=== PATIENT | female | born 1995 | race American Indian/Alaskan Native ===

== ENCOUNTER 2017-12-14 19:05 | Emergency (ER) | payer MEDICAID, OTHER ==
[2017-12-14 19:31] VITALS: BP 132/62
[2017-12-14 20:17] LABS: Hematocrit 34.8 % (30.3-42.9); Hemoglobin 12.4 gm/dl (10.1-14.3); Mean Corpuscular HGB Conc 36 % (30-34); Mean Corpuscular Hemoglobin 31 pg (28-32); Mean Corpuscular Volume 88 fl (79-97); Platelet Count 179 K/mm3 (140-440); Red Blood Count 3.97 M/mm3 (3.65-5.03)
[2017-12-14 20:29] LABS: BUN/Creatinine Ratio 15; Blood Urea Nitrogen 9 mg/dL (7-17); Hemolysis Index 50
--- NOTE | 2017-12-14 23:38 | Ultrasound Report ---
FINAL REPORT EXAM: US OB TRANSVAGINAL HISTORY: vaginal bleed with TECHNIQUE: Ultrasound obstetrical trans vaginal PRIORS: None. FINDINGS: The endometrium is markedly thickened with irregular appearance with largely echogenic areas along with some hypoechoic areas. There is an ovoid sac-like structure in the mid to lower uterus without definitive pole or yolk sac identified. Endometrium measures 2.67 centimeters. Right ovary is 3.2 x 1.9 x 1.9 centimeters there is a 1.9 centimeter right ovarian cyst Left ovary is 2.1 x 1.4 x 1.6 centimeters. No free fluid identified within the cul-de-sac. IMPRESSION: Findings are most suggestive of incomplete miscarriage
--- NOTE | 2017-12-14 23:45 | Ultrasound Report ---
FINAL REPORT EXAM: US OB < = 14 WEEKS FETUS HISTORY: vaginal bleed with TECHNIQUE: Ultrasound obstetrical transabdominal PRIORS: None. FINDINGS: The endometrium is markedly thickened with irregular appearance with largely echogenic areas along with some hypoechoic areas. There is an ovoid sac-like structure in the mid to lower uterus without definitive pole or yolk sac identified. Endometrium measures 2.67 centimeters. Right ovary is 3.2 x 1.9 x 1.9 centimeters there is a 1.9 centimeter right ovarian cyst Left ovary is 2.1 x 1.4 x 1.6 centimeters. No free fluid identified within the cul-de-sac. IMPRESSION: Findings are most suggestive of incomplete miscarriage
[2017-12-14] MEDS ORDERED: ZOFRAN ODT ONE (23:51)
[2017-12-14] MEDS ORDERED: NORCO 5/325 ONE (23:51)
[2017-12-14] MEDS ORDERED: ZOFRAN ODT PO ONE (23:53)
[2017-12-14] MEDS ORDERED: NORCO 5/325 PO ONE (23:54)
[2017-12-15] MEDS ORDERED: MORPHINE IM ONE (00:15)
[2017-12-15] MEDS ORDERED: ZOFRAN ONE (00:15)
[2017-12-15] MEDS ORDERED: ZOFRAN IM ONE (00:15)
[2017-12-15] MEDS ORDERED: MORPHINE ONE (00:15)
--- NOTE | 2017-12-15 01:11 | Emergency Department Report ---
ED HPI - General Chief complaint: Vaginal Bleeding Stated complaint: MISCARRIAGE/PAIN Source: patient Mode of arrival: Ambulatory Limitations: No Limitations - History of Present Illness MD Complaint: abdominal pain, vaginal bleeding Onset/Timin -: week(s) Radiation: none Severity: moderate Severity scale (0 -10): 4 Quality: cramping Consistency: intermittent Improves with: none Worsens with: movement Associated symptoms: vaginal bleeding, abdominal pain. denies: shortness of breath, syncope, weakness Vaginal bleeding: clots :: Yes - Related Data Previous Rx's Medication Instructions Recorded Last Taken Type Ondansetron [Zofran Odt] 4 mg PO TID PRN #15 tab.rapdis 12/15/17 Unknown Rx traMADol [Ultram] 50 mg PO Q6HR PRN #9 tablet 12/15/17 Unknown Rx Allergies Allergy/AdvReac Type Severity Reaction Status Date / Time Penicillins Allergy Unknown Verified 12/14/17 19:31 ED Review of Systems ROS: Stated complaint: MISCARRIAGE/PAIN Other details as noted in HPI Constitutional: denies: chills, fever Eyes: denies: eye pain, eye discharge, vision change ENT: denies: ear pain, throat pain Respiratory: denies: cough, shortness of breath, wheezing Cardiovascular: denies: chest pain, palpitations Endocrine: no symptoms reported Gastrointestinal: abdominal pain, nausea, vomiting Genitourinary: other (vaginal bleeding ) Musculoskeletal: back pain Skin: denies: rash, lesions Neurological: denies: headache, weakness, paresthesias Psychiatric: denies: anxiety, depression Hematological/Lymphatic: denies: easy bleeding, easy bruising ED Past Medical Hx - Past Medical History Previous Medical History?: No - Surgical History Past Surgical History?: No - Social History Smoking Status: Never Smoker Substance Use Type: None - Medications Home Medications: Home Medications Medication Instructions Recorded Confirmed Last Taken Type Ondansetron [Zofran Odt] 4 mg PO TID PRN #15 tab.rapdis 12/15/17 Unknown Rx traMADol [Ultram] 50 mg PO Q6HR PRN #9 tablet 12/15/17 Unknown Rx ED Physical Exam - General Limitations: No Limitations General appearance: alert, in no apparent distress - Head Head exam: Present: atraumatic, normocephalic - Eye Eye exam: Present: normal appearance - ENT ENT exam: Present: mucous membranes moist - Neck Neck exam: Present: normal inspection - Respiratory Respiratory exam: Present: normal lung sounds bilaterally. Absent: respiratory distress - Cardiovascular Cardiovascular Exam: Present: regular rate, normal rhythm. Absent: systolic murmur, diastolic murmur, rubs, gallop - GI/Abdominal GI/Abdominal exam: Present: soft, normal bowel sounds. Absent: distended, tenderness, guarding, rebound, rigid, organomegaly, mass, bruit, pulsatile mass , hernia - Expanded GI/Abdominal Exam Expanded GI/Abdominal exam: Absent: psoas sign, obturator sign, heel tap sign, Hamilton's sign - Rectal Rectal exam: Present: deferred - Extremities Exam Extremities exam: Present: normal inspection, full ROM, normal capillary refill. Absent: tenderness, pedal edema, joint swelling, calf tenderness - Back Exam Back exam: Present: normal inspection, full ROM. Absent: tenderness, CVA tenderness (R), CVA tenderness (L), muscle spasm, paraspinal tenderness, vertebral tenderness, rash noted - Neurological Exam Neurological exam: Present: alert, oriented X3, CN II-XII intact, normal gait, reflexes normal - Psychiatric Psychiatric exam: Present: normal affect, normal mood - Skin Skin exam: Present: warm, dry, intact, normal color. 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 Echeverria defers vaginal exam to the plan Ultram when necessary pain and Zofran when necessary nausea patient given strict instructions to return the ED should symptoms worsen H&H stable pt id bpos blood type at this time patient to DC to home in stable condition patient verbalizes understanding and agreement was signed will be DC'd home in stable condition at this time Critical care attestation.: If time is entered above; I have spent that time in minutes in the direct care of this critically ill patient, excluding procedure time. ED Disposition Clinical Impression: Miscarriage, Vaginal bleeding affecting early Disposition: DC-01 TO HOME OR SELFCARE Is pt being admited?: No Does the pt Need Aspirin: No Condition: Good Instructions: Spontaneous Miscarriage (ED) Prescriptions: Ondansetron [Zofran Odt] 4 mg PO TID PRN #15 tab.rapdis PRN Reason: nausea and vomiting traMADol [Ultram] 50 mg PO Q6HR PRN #9 tablet PRN Reason: Pain Referrals: JESSICA ECHEVERRIA MD [Referring] - 3-5 Days Forms: Work/School Release Form(ED) Time of Disposition: 01:18
== END 2017-12-15 01:30 | disposition home or self-care (01) ==
LOC: ED 19:05
DX: O03.9 Complete or unspecified spontaneous abortion without complication (principal); Z88.0 Allergy status to penicillin; Z3A.01 Less than 8 weeks gestation of pregnancy
CPT/HCPCS: 36415; 76801; 76817; 80048; 84702; 85027; 86900; 86901; 96372; 99284; J2270; J2405; Q0162

== ENCOUNTER 2018-06-06 12:32 | Emergency (ER) | payer BC, OTHER ==
[2018-06-06 12:42] VITALS: BP 125/82
[2018-06-06] MEDS ORDERED: REGLAN IV ONE (13:20)
[2018-06-06] MEDS ORDERED: PEPCID IV ONE (13:20)
[2018-06-06] MEDS ORDERED: ZOFRAN IV ONE (13:20)
--- NOTE | 2018-06-06 13:22 | Emergency Department Report ---
Vomiting/Diarrhea - HPI Duration: multiple weeks Severity: severe Nausea/Vomiting Severity: Severe Diarrhea Severity: None Pain Severity: None Other History: Patient has been diagnosed with hyperemesis gravidarum and is approximately 10 weeks . Patient is scheduled to have a Zofran pump installed however this is not happened yet. Patient states she is been unable to keep anything down and is starting to feel dizzy. She is coming in because her home medications are not working. <CRUZ NGO - Last Filed: 06/06/18 13:21> <GAURI ZENDEJAS - Last Filed: 06/06/18 16:22> - HPI Chief Complaint: Nausea/Vomiting/Diarrhea Stated Complaint: 10 WKS PREG/VOMITING Time Seen by Provider: 06/06/18 13:13 ED Review of Systems ROS: Stated complaint: 10 WKS PREG/VOMITING Other details as noted in HPI Comment: All other systems reviewed and negative <CRUZ NGO - Last Filed: 06/06/18 13:21> ROS: Stated complaint: 10 WKS PREG/VOMITING Other details as noted in HPI <GAURI ZENDEJAS - Last Filed: 06/06/18 16:22> ED Past Medical Hx - Past Medical History Previous Medical History?: No - Surgical History Past Surgical History?: No - Social History Smoking Status: Never Smoker Substance Use Type: None <CRUZ NGO - Last Filed: 06/06/18 13:21> <GAURI ZENDEJAS - Last Filed: 06/06/18 16:22> - Medications Home Medications: Home Medications Medication Instructions Recorded Confirmed Last Taken Type Ondansetron [Zofran Odt] 4 mg PO TID PRN #15 tab.rapdis 12/15/17 Unknown Rx traMADol [Ultram] 50 mg PO Q6HR PRN #9 tablet 12/15/17 Unknown Rx Metoclopramide [Reglan] 10 mg PO TID PRN #30 tab 06/06/18 Unknown Rx Vomiting Diarrhea Exam - Exam General: Vital signs noted. No distress. Alert and acting appropriately. HEENT: No Pharyngeal Erythema, No Pharyngeal Exudates, No Moist Mucous Membranes (dry), No Rhinorrhea, No Conjuctival Injection, No Frontal Tenderness, No Maxillary Tenderness Neck: No Adenopathy, No Rigidity Lungs: Yes Clear Lung Sounds, Yes Good Air Exchange, No Wheezes, No Stridor, No Cough, No Nasal Flaring, No Retractions, No Use of Accessory Muscles Heart exam: Regular: Yes, Murmur: No, Tachycardia: No Abdomen: Tenderness: No, Peritoneal Signs: No, Distention: No, Hyperactive Bowel sounds: No Skin exam: Rash: No, Edema: No, Normal turgor: Yes Neurologic: Alert and oriented, no deficits. Musculoskeletal: Unremarkable. <CRUZ NGO - Last Filed: 06/06/18 13:21> - Exam General: Vital signs noted. No distress. Alert and acting appropriately. Neurologic: Alert and oriented, no deficits. Musculoskeletal: Unremarkable. <GAURI ZENDEJAS - Last Filed: 06/06/18 16:22> ED Course Vital Signs 06/06/18 12:36 Temperature 99.1 F Pulse Rate 98 H Respiratory 18 Rate Blood Pressure 125/82 O2 Sat by Pulse 100 Oximetry <CRUZ NGO - Last Filed: 06/06/18 13:21> Vital Signs 06/06/18 06/06/18 12:36 13:47 Temperature 99.1 F Pulse Rate 98 H Respiratory 18 18 Rate Blood Pressure 125/82 O2 Sat by Pulse 100 99 Oximetry <GAURI ZENDEJAS - Last Filed: 06/06/18 16:22> ED Medical Decision Making - Lab Data Result diagrams: 06/06/18 13:48 06/06/18 13:48 - Medical Decision Making Patient was seen and examined by Chelly Silva. Labs obtained. Vital signs are stable prior to discharge. Patient received medical treatment in the ED which patient stated symptoms has resolved and subsided. A by mouth challenge has been obtained and patient tolerated well with no nausea vomiting. Patient was also instructed to Follow-up with a primary care doctor in 3-5 days or if symptoms worsen and continue return to emergency room as soon as possible. At time of discharge, the patient does not seem toxic or ill in appearance. No acute signs of distress noted. Patient agrees to discharge treatment plan of care. No further questions noted by the patient. <GAURI ZENDEJAS Last Filed: 06/06/18 16:22> Critical care attestation.: If time is entered above; I have spent that time in minutes in the direct care of this critically ill patient, excluding procedure time. <CRUZ NGO - Last Filed: 06/06/18 13:21> Critical care attestation.: If time is entered above; I have spent that time in minutes in the direct care of this critically ill patient, excluding procedure time. <GAURI ZENDEJAS - Last Filed: 06/06/18 16:22> ED Disposition <NGOCRUZ - Last Filed: 06/06/18 13:21> Is pt being admited?: No Does the pt Need Aspirin: No <GAURI ZENDEJAS - Last Filed: 06/06/18 16:22> Clinical Impression: Hyperemesis gravidarum, Hypokalemia Disposition: TO HOME OR SELFCARE Condition: Stable Instructions: Hyperemesis Gravidarum (ED) Additional Instructions: Follow-up with a OBGYN doctor in 3-5 days or if symptoms worsen and continue return to emergency room as soon as possible. Prescriptions: Metoclopramide [Reglan] 10 mg PO TID PRN #30 tab PRN Reason: Nausea Referrals: OSWALD MATHEWS MD [Primary Care Provider] - 3-5 Days PRIMARY CAREMD [Referring] - 3-5 Days LEONARD BANKS MD [Staff Physician] - 3-5 Days [facility] [Provider Group] - 3-5 Days Forms: Work/School Release Form(ED)
[2018-06-06 13:59] LABS: Basophils % (Auto) 0.4 % (0.0-1.8); Eosinophils # (Auto) 0.1 K/mm3 (0.0-0.4); Eosinophils % (Auto) 0.7 % (0.0-4.3); Hematocrit 40.6 % (30.3-42.9); Hemoglobin 14.1 gm/dl (10.1-14.3); Lymphocytes # (Auto) 1.1 K/mm3 (1.2-5.4); Lymphocytes % (Auto) 12.5 % (13.4-35.0); Mean Corpuscular HGB Conc 35 % (30-34); Mean Corpuscular Volume 84 fl (79-97); Monocytes # (Auto) 0.5 K/mm3 (0.0-0.8); Monocytes % (Auto) 5.5 % (0.0-7.3); Platelet Count 223 K/mm3 (140-440); Red Blood Count 4.84 M/mm3 (3.65-5.03); Red Cell Distribution Width 12.6 % (13.2-15.2)
[2018-06-06] MEDS ORDERED: D5NS 1,000 ML IV SCH (14:00)
[2018-06-06 14:35] LABS: BUN/Creatinine Ratio 12; Blood Urea Nitrogen 6 mg/dL (7-17); Hemolysis Index 0
[2018-06-06] MEDS ORDERED: K-DUR PO ONE (16:20)
== END 2018-06-06 16:47 | disposition home or self-care (01) ==
LOC: ED 12:32
DX: O21.1 Hyperemesis gravidarum with metabolic disturbance (principal); Z3A.10 10 weeks gestation of pregnancy; Z88.0 Allergy status to penicillin
CPT/HCPCS: 36415; 80048; 85025; 96361; 96374; 96375; 99283; J2405; J2765; J7042

== ENCOUNTER 2019-04-21 14:46 | Inpatient (IN) | payer BC, OTHER ==
[2019-04-21] MEDS ORDERED: ACETAMINOPHEN 325 MG TAB PO PRN (14:52)
[2019-04-21] MEDS ORDERED: DOCUSATE SODIUM 100 MG CAP PO PRN (14:52)
[2019-04-21] MEDS ORDERED: PRENATAL VIT27-FE FUMARATE-FOLIC ACID VIT TAB PO SCH (15:00)
--- NOTE | 2019-04-21 15:20 | History and Physical Report ---
History of Present Illness Date of examination: 04/21/19 Chief complaint: pt sent from office for direct admit, IUGR and oligohydramnios History of present illness: Pt presents for BRYSON at 34wks. No complaints voiced. Desires Mirena for PP contraception. FH - 28. U/S done for EFW (2-9) and SHIV (6). Consulted with Dr. Jay. Pt sent to L&D for IVF x 24hrs, continuous monitoring, repeat SHIV & EFW in AM with BPP w/ Dopplers. EDC Calculations LMP: 05/29/2019 Past History : 3 Term Births: 0 Premature Births: 0 Living Children: 0 Para: 0 Mult. Births: 0 Prev : 0 Prev. attempt? 0 Aborta: 2 Elect. Ab: 0 Spont. 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 Infection History Hx of STD: none HIV Risk Eval: low risk Hepatitis B Risk Eval: low risk Personal hx. of genital herpes: no Rash, Viral, or Febrile illness since last LMP? no Varicella/Chicken Pox Status: Previous Disease TB Risk: no Genetic History Congenital Heart Defect: Mom: no Dad: no Julia Disease: Mom: no Dad: no Thalassemia Mom: no Dad: no Neural Tube Defect Mom: no Dad: no Down's Syndrome Mom: no Dad: no Renzo-Sachs Mom: no Dad: no Sickle Cell Disease/Trait Mom: no Dad: no Hemophilia Mom: no Dad: no Muscular Dystrophy Mom: no Dad: no Cystic Fibrosis Mom: no Dad: no Shayy Chorea Mom: no Dad: no Mental Retardation Mom: no Dad: no Fragile X Mom: no Dad: no Other Genetic/Chromosomal Disorder Mom: no Dad: no Child w/other defect Mom: no Dad: no Enviromental Exposures Enviromental Exposures Reviewed Xray Exposure: no Medication, drug, or alcohol use since LMP: no Chemical/Other Exposure: yes Exposure to Cat Liter: no Hx of Parvovirus (Fifth Disease): no Occupational Exposure to Children: none Comments: works in a [employer] Active Medications (reviewed today): REGLAN TABS (METOCLOPRAMIDE HCL TABS) 10MG () 1 po TID ZOFRAN () Current Allergies (reviewed today): PCN (Critical) Past History Past Medical History: no pertinent history Past Surgical History: no surgical history Social history: no significant social history - Obstetrical History Expected Date of Delivery: 05/29/19 Actual Gestation: 34 Week(s) 4 Day(s) : 3 Para: 0 Hx # Term Pregnancies: 0 Number of Pregnancies: 0 Spontaneous Abortions: 2 Induced : 0 Medications and Allergies Allergies Allergy/AdvReac Type Severity Reaction Status Date / Time Penicillins Allergy Unknown Verified 12/14/17 19:31 Home Medications Medication Instructions Recorded Confirmed Last Taken Type Ondansetron [Zofran Odt] 4 mg PO TID PRN #15 tab.rapdis 12/15/17 Unknown Rx traMADoL [Ultram] 50 mg PO Q6HR PRN #9 tablet 12/15/17 Unknown Rx Metoclopramide [Reglan] 10 mg PO TID PRN #30 tab 06/06/18 Unknown Rx Active Meds: Active Medications Acetaminophen (Tylenol) 650 mg PO Q4H PRN PRN Reason: Pain MILD(1-3)/Fever >100.5/EASTON Docusate Sodium (Colace) 100 mg PO Q12H PRN PRN Reason: Constipation Lactated Ringer's (Lactated Ringers) 1,000 mls @ 125 mls/hr IV DIRECT CHRISTIAN Multivitamins/Iron/Calcium ( Vitamin) 1 each PO QDAY CHRISTIAN Review of Systems All systems: negative - Physical Exam Breasts: Positive: normal Cardiovascular: Regular rate Lungs: Positive: Normal air movement Abdomen: Positive: normal appearance, soft Genitourinary (Female): Positive: normal external genitalia, normal perenium Vulva: both: normal Vagina: Positive: normal moisture Uterus: Positive: normal size, normal contour Anus/Rectum: Positive: normal perianal skin Extremities: Positive: normal Deep Tendon Reflex Grade: Normal +2 - Obstetrical FHR: category 2 (variables noted, ave variabilty) Uterine Contraction Monitor Mode: External Uterine Contraction Pattern: Irregular Uterine Tone Measurement Phase: Resting Results All other labs normal. Assessment and Plan 23y/o @ 34+4 weeks, admitted from office for monitoring and repeat u/s in AM. Admission orders in EMR. Patient seen by AMFM 12/27/18 d/t + ONTD on MSAFP. Dr. Sol advised pt to return 12/30/18 for blood draw and then in 3 weeks for repeat anatomy scan and growth scan. Patient states she did not return and was not aware she was supposed to return. Discussed plan for admission with patient and family extensively, all questions addressed. Patient states she verbalizes understanding of teaching. - Patient Problems (1) 34 weeks gestation of Current Visit: Yes Status: Acute (2) IUGR (intrauterine growth restriction) Current Visit: Yes Status: Acute Plan to address problem: BPP with doppler studies, efw and SHIV tomorrow morning cont efm and toco (3) Oligohydramnios Current Visit: Yes Status: Acute Qualifiers: Fetus number: single or unspecified fetus Trimester: third trimester Qualified Code(s): O41.03X0 - Oligohydramnios, third trimester, not applicable or unspecified Plan to address problem: SHIV 6 in office today IVF hydration repeat SHIV in AM
[2019-04-21] MEDS: LACTATED RINGERS 1,000 ML IV SCH ×2 (16:07→20:03)
[2019-04-21 17:05] LABS: Hematocrit 32.9 % (30.3-42.9); Hemoglobin 11.2 gm/dl (10.1-14.3); Mean Corpuscular HGB Conc 34 % (30-34); Mean Corpuscular Volume 90 fl (79-97); Platelet Count 185 K/mm3 (140-440); Red Blood Count 3.68 M/mm3 (3.65-5.03)
[2019-04-21 17:06] LABS: Amphetamine Screen,Urine PRESUMPTIVE NEGATIVE; Benzodiazepines Screen,Urine PRESUMPTIVE NEGATIVE; Cannabinoid Screen,Urine PRESUMPTIVE NEGATIVE; Cocaine Screen,Urine PRESUMPTIVE NEGATIVE; Methadone Screen,Urine PRESUMPTIVE NEGATIVE; Opiate Screen,Urine PRESUMPTIVE NEGATIVE
[2019-04-21] MEDS ORDERED: LACTATED RINGERS 500 ML IV SCH (19:00)
[2019-04-21] MEDS ORDERED: BETAMET ACET/BETAMET NA PH 6 MG/ML INJ 5 ML MDV IM SCH (19:00)
--- NOTE | 2019-04-21 19:13 | Progress Note ---
Assessment and Plan - Patient Problems (1) 34 weeks gestation of Current Visit: Yes Status: Acute (2) IUGR (intrauterine growth restriction) Current Visit: Yes Status: Acute Plan to address problem: Will proceed with steriods, NICU consult, EFW, yamila and dopplers, may require delivery tonight O2 placed, IVF bolus given Diagnosis and plan of care explained, questions encouraged and answered, she voiced understanding (3) Oligohydramnios Current Visit: Yes Status: Acute Qualifiers: Fetus number: single or unspecified fetus Trimester: third trimester Qualified Code(s): O41.03X0 - Oligohydramnios, third trimester, not applicable or unspecified Subjective - Subjective Date of service: 04/21/19 Patient reports: no new complaints, no loss of fluid Objective - Vital Signs Vital Signs: Vital Signs - 12hr 04/21/19 04/21/19 15:38 19:04 Temperature 98.2 F Pulse Rate 77 57 L Respiratory 18 Rate Blood Pressure 121/61 125/73 Blood Pressure 121/65 [Left] - Exam Breasts: deferred Cardiovascular: Regular rate Lungs: Normal air movement Abdomen: Present: soft. Absent: tenderness Vulva: both: normal Uterus: Present: fundal height at umbilicus FHR: category 2 (declerations noted, ) Cervical Dilatation: 0 Cervical Effacement Percentage: 70 station: -1, soft, posterior Uterine Contraction Pattern: Irregular Extremities: normal - Labs Labs: Laboratory Results - last 24 hr 04/21/19 04/21/19 04/21/19 16:20 16:20 16:20 WBC 10.2 RBC 3.68 Hgb 11.2 Hct 32.9 MCV 90 MCH 30 MCHC 34 RDW 14.0 Plt Count 185 Urine Opiates Screen Urine Methadone Screen Ur Barbiturates Screen Ur Phencyclidine Scrn Ur Amphetamines Screen U Benzodiazepines Scrn Urine Cocaine Screen U Marijuana (THC) Screen Drugs of Abuse Note Syphilis IgG Antibody Non-reactive Blood Type B POSITIVE Antibody Screen Negative 04/21/19 16:45 WBC RBC Hgb Hct MCV MCH MCHC RDW Plt Count Urine Opiates Screen Presumptive negative Urine Methadone Screen Presumptive negative Ur Barbiturates Screen Presumptive negative Ur Phencyclidine Scrn Presumptive negative Ur Amphetamines Screen Presumptive negative U Benzodiazepines Scrn Presumptive negative Urine Cocaine Screen Presumptive negative U Marijuana (THC) Screen Presumptive negative Drugs of Abuse Note Disclamer Syphilis IgG Antibody Blood Type Antibody Screen
--- NOTE | 2019-04-21 21:04 | Consultation ---
Consult Note - Parent Education I met with parent(s) and discussed the following:: Need for NICU admission, Poss ible need for intubation and surfactant or other resp support, Temperature regulation, Possible need for IV fluids/TPN and IV antibiotics, Possible need for umbilical lines, Importance of providing breast milk & encouraged pumping aft delivery, Slow feeding advancement and monitoring of tolerance. NG/OG feeds, Need to monitor for jaundice Parent(s) demonstrated understanding of all the information:: Yes Assessment and Plan - Assessment Gestation:: 34 Estimated Weight: 1500g Baby's gender: Male Additional Comment: Induction for IUGR and oligohydramnios. . infant measuring in 11th percentile as early as 18 weeks gestation. AFP low, qestionable neural tube defect. Anatomy scan with normal spine but want to repeat it again along with AFP. Mother states she did not know about this appointment and did not have repeat done. - Plan Plan: Will attend delivery Please call NICU with questions
--- NOTE | 2019-04-21 21:12 | Anesthesia Day of Surgery ---
Anesthesia Day of Surgery - Day of Surgery Patient Examined: Yes Patient H&P Reviewed: Yes Patient is NPO: Yes
--- NOTE | 2019-04-21 21:12 | Anesthesia Consultation ---
Anesthesia Consult and Med Hx Date of service: 04/21/19 - Airway Anesthetic Teeth Evaluation: Good ROM Head & Neck: Adequate Mental/Hyoid Distance: Adequate Mallampati Class: Class II Intubation Access Assessment: Probably Good - Pulmonary Exam CTA: Yes - Cardiac Exam Cardiac Exam: RRR - Pre-Operative Health Status ASA Pre-Surgery Classification: ASA2 Proposed Anesthetic Plan: Spinal - Pulmonary Hx Asthma: No COPD: No Hx Pneumonia: No - Cardiovascular System Hx Hypertension: No - Central Nervous System Hx Seizures: Yes (last seizure 2015) Hx Psychiatric Problems: No - Endocrine Hx Renal Disease: No Hx End Stage Renal Disease: No Hx Hypothyroidism: No Hx Hyperthyroidism: No - Hematic Hx Anemia: No Hx Sickle Cell Disease: No - Other Systems Hx Alcohol Use: No
--- NOTE | 2019-04-21 21:15 | Progress Note ---
Assessment and Plan - Patient Problems (1) 34 weeks gestation of Current Visit: Yes Status: Acute (2) IUGR (intrauterine growth restriction) Current Visit: Yes Status: Acute Plan to address problem: BPP 10 with suspicious decelerations. Recommend proceeding with delivery at this time. NORMAN vs c/s discussed with patient and her family.Risk for deterioration of FHT's that may culminate in emergency c/s explained. Also discussed c/s with risks for bleeding, infection, injury to bowel/bladder or major vascular injury. She was informed she may require c/s for all subsequent deliveries. Questions were encouraged and answered. Consents were reviewed and signed, she voiced understanding and desires to proceed with c/s. (3) Oligohydramnios Current Visit: Yes Status: Acute Qualifiers: Fetus number: single or unspecified fetus Trimester: third trimester Qualified Code(s): O41.03X0 - Oligohydramnios, third trimester, not applicable or unspecified Subjective - Subjective Date of service: 04/21/19 Interval history: IUP@ 34 weeks IUGR, cat 2, BPP 410 Patient reports: no new complaints, no loss of fluid Objective - Vital Signs Vital Signs: Vital Signs - 12hr 04/21/19 04/21/19 04/21/19 15:38 19:04 20:05 Temperature 98.2 F Pulse Rate 77 57 L 61 Respiratory 18 Rate Blood Pressure 121/61 125/73 122/72 Blood Pressure 121/65 [Left] 04/21/19 04/21/19 21:00 21:04 Temperature Pulse Rate 54 L 61 Respiratory Rate Blood Pressure 120/75 133/94 Blood Pressure [Left] - Labs Labs: Laboratory Results - last 24 hr 04/21/19 04/21/19 04/21/19 16:20 16:20 16:20 WBC 10.2 RBC 3.68 Hgb 11.2 Hct 32.9 MCV 90 MCH 30 MCHC 34 RDW 14.0 Plt Count 185 Urine Opiates Screen Urine Methadone Screen Ur Barbiturates Screen Ur Phencyclidine Scrn Ur Amphetamines Screen U Benzodiazepines Scrn Urine Cocaine Screen U Marijuana (THC) Screen Drugs of Abuse Note Syphilis IgG Antibody Non-reactive Blood Type B POSITIVE Antibody Screen Negative 04/21/19 16:45 WBC RBC Hgb Hct MCV MCH MCHC RDW Plt Count Urine Opiates Screen Presumptive negative Urine Methadone Screen Presumptive negative Ur Barbiturates Screen Presumptive negative Ur Phencyclidine Scrn Presumptive negative Ur Amphetamines Screen Presumptive negative U Benzodiazepines Scrn Presumptive negative Urine Cocaine Screen Presumptive negative U Marijuana (THC) Screen Presumptive negative Drugs of Abuse Note Disclamer Syphilis IgG Antibody Blood Type Antibody Screen
[2019-04-21] MEDS ORDERED: BICITRA ORAL LIQD 30ML PO ONE (21:17)
[2019-04-21] MEDS ORDERED: FAMOTIDINE 20 MG/2 ML INJ IV ONE ×2 (21:17→21:21)
[2019-04-21] MEDS ORDERED: GENTAMICIN 0 MG in SODIUM CHLORIDE 0.9% 100 ML IV ONE (21:17)
[2019-04-21] MEDS ORDERED: METOCLOPRAMIDE 10 MG/2 ML INJ IV ONE ×2 (21:17→22:00)
[2019-04-21] MEDS ORDERED: BICITRA ORAL LIQD 30ML ONE (21:20)
[2019-04-21] MEDS ORDERED: METOCLOPRAMIDE 10 MG/2 ML INJ ONE (21:20)
[2019-04-21] MEDS ORDERED: OXYTOCIN 20 UNIT/1000ML DRIP 20,000 MILLIUNITS/1,000 ML BAG IV ONE (21:20)
[2019-04-21] MEDS ORDERED: ceFAZolin/Water 2 GM/20 ML 0 GM/0 ML SYRINGE IV ONE (21:21)
[2019-04-21] MEDS ORDERED: BUPIVACAINE /DEX-WATER 0.75% (2 ML) AMPULE INFILTRATI ONE (21:27)
[2019-04-21] MEDS ORDERED: KETOROLAC 30 MG/1 ML INJ ONE (21:27)
[2019-04-21] MEDS ORDERED: OXYTOCIN 10 UNIT/1 ML INJ ONE (21:27)
[2019-04-21] MEDS ORDERED: DEXMEDETOMIDINE 200 MCG/2 ML VIAL IV ONE (21:27)
[2019-04-21] MEDS ORDERED: ONDANSETRON 4 MG/2 ML INJ ONE (21:27)
[2019-04-21] MEDS ORDERED: GENTAMICIN 330 MG in SODIUM CHLORIDE 0.9% 100 ML IV SCH (22:00)
[2019-04-21] MEDS ORDERED: OXYTOCIN 20 UNIT/1000ML DRIP 20 UNITS/1,000 ML BAG IV SCH (22:00)
[2019-04-21] MEDS ORDERED: LACTATED RINGERS 1,000 ML IV SCH (22:00)
--- NOTE | 2019-04-21 23:26 | Post Anesthesia Evaluation ---
- Post Anesthesia Evaluation Patient Participated: Yes Airway Patent: Yes Stable Respiratory Function: Yes Nausea/Vomiting: No Temp > 96.8F: Yes Pain Manageable: Yes Adequeate Hydration: Yes Anesthesia Complications: No Block Receding Appropriately: Yes
--- NOTE | 2019-04-21 23:55 | Operative Report ---
Operative Report Operative Report: Date: 04/21/2019 Preoperative diagnosis: 1. Intrauterine at 34 weeks 2. Intrauterine growth restriction 3. Abnormal testing remote from delivery Postoperative diagnosis: 1. Intrauterine at 34 weeks 2. Intrauterine growth restriction 3. Abnormal testing remote from delivery Procedure: Low uterine transverse incision for delivery Surgeon: Anali Jay MD Speech Writer: Sylvia Kline CST Anesthesia: Spinal Anesthesiologist: Dr. Torrez Estimated blood loss: 500 mL Urine out: 50 mL Findings: Live born male . Weight 2 lbs. 10 oz. Apgars 8 at 1 minute 9 at 5 minutes. Grossly normal uterus tubes and ovaries Procedure: After risk, benefits, complications, consequences and alternatives for this procedure were discussed with patient and consents were reviewed and signed, she was taken to the OR where spinal anesthesia was placed. She was then placed in the left lateral tilt position, and prepped and draped in the usual sterile fashion. Timeout was performed, and an appropriate level of anesthesia was noted, a Pfannenstiel incision was made and extended to the fascia which was incised and extended in the lateral directions. The overlying fascia was sharply dissected away from the underlying rectus muscles in the superior and inferior directions. The midline was entered bluntly. The large a Paige retractor was placed. The vesicouterine fold was incised and with blunt dissection the bladder flap was created. A transverse incision was made in the lower uterine segment and extended in superiolateral direction with finger fractionation. Small amount of clear fluid was noted. The was delivered from cephalic position. Mouth and nose were bulb suctioned. Spontaneous cry and excellent tone were noted. Cord was doubly clamped and cut. The infant was given to /resuscitation team present. The placenta was manually extracted. The uterus was then exteriorized and cleared of any further products of conception or placental tissue. The incision was reapproximated using 0 Vicryl in a running interlocking stitch. Further suture 0 Vicryl in imbricating fashion was placed to the incision. Grossly normal uterus, tubes and ovaries were noted. Once hemostasis was noted, the uterus was allowed back into the pelvic cavity. The pelvis was irrigated with warm normal saline. Again hemostasis was noted . Surgicel was placed over the incision to further ensure hemostasis. Then Interceed was placed on the fundus of the uterus to decrease adhesions. Then attention was turned to the rectus muscles. The rectus muscles reapproximated using 3-0 Vicryl in a simple interrupted stitch x 4. Once hemostasis was noted, the fascia was reapproximated using 0 Vicryl running stitch fashion. Once hemostasis was noted, the incision was irrigated with warm normal saline. Once hemostasis was noted, skin incision was reapproximated using 4-0 Vicryl on a Twan needle in a subcuticular manner. Counts were correct 3. Patient tolerated procedure well state recovery room in stable condition.
[2019-04-22] MEDS ORDERED: MAGNESIUM HYDROXIDE (MOM) ORAL LIQD UDC PO PRN (01:32)
[2019-04-22] MEDS ORDERED: SIMETHICONE 80 MG CHEW TAB PO PRN (01:32)
[2019-04-22] MEDS ORDERED: OXYTOCIN 20 UNIT/1000ML DRIP 20 UNITS/1,000 ML BAG IV SCH (01:32)
[2019-04-22] MEDS ORDERED: ONDANSETRON 4 MG/2 ML INJ IV PRN (01:32)
[2019-04-22] MEDS ORDERED: NALOXONE 0.4 MG/1 ML INJ IV PRN (01:32)
[2019-04-22] MEDS ORDERED: WITCH HAZEL/ GLYCERIN PAD TP PRN (01:32)
[2019-04-22] MEDS ORDERED: MORPHINE 4 MG/1 ML INJ IV PRN (01:32)
[2019-04-22] MEDS ORDERED: MORPHINE 2 MG/1 ML INJ IV PRN (01:32)
[2019-04-22] MEDS ORDERED: LANOLIN/ZINC/DIMETHICONE (LANSINOH) 7 GM TP PRN (01:32)
[2019-04-22] MEDS ORDERED: D5W/LACTATED RINGERS 1,000 ML IV SCH (01:32)
[2019-04-22] MEDS ORDERED: PROMETHAZINE 25 MG RECT SUPP PR PRN (01:32)
[2019-04-22] MEDS ORDERED: ACETAMINOPHEN 325 MG TAB PO PRN (03:00)
[2019-04-22] MEDS ORDERED: TETANUS,DIPH,PERTUSS(ACELL) VACCINE 0.5 ML SYRINGE IM ONE (06:00)
[2019-04-22] MEDS ORDERED: AMMONIA INHALANT IH ONE (06:25)
[2019-04-22] MEDS: KETOROLAC 30 MG/1 ML INJ IV SCH ×3 (06:30→23:47)
[2019-04-22] MEDS: CLINDAMYCIN 600 MG/50 mL 600 MG/50 ML BAG IV SCH ×2 (06:53→18:51)
--- NOTE | 2019-04-22 06:55 | Ultrasound Report ---
OB ultrasound FINDINGS: Single fetus is identified in vertex presentation. Appropriate measurements reveal an MA of 30 weeks 1 day for an EDC 06/29/2019. This is behind clinical dates by approximately 4 weeks. h eart rate is 166 bpm. SHIV is diminished at 4.7 cm. Placenta is anterior right lateral position. Signer Name: Javad Juares MD Signed: 04/22/2019 6:50 AM Workstation Name: [id number]
--- NOTE | 2019-04-22 08:32 | Progress Note ---
Assessment and Plan patient doing well, no complaints. incision D&I, VSSAF, H&H ordered for 1100. Lochia scant, fundus firm - Patient Problems (1) delivery delivered Current Visit: Yes Status: Acute Plan to address problem: continue postop pathway advance activity and diet as tolerated Subjective - Subjective Date of service: 04/22/19 Principal diagnosis: postop day #1 s/p primary c/s Interval history: Pt presents for BRYSON at 34wks. No complaints voiced. Desires Mirena for PP contraception. FH - 28. U/S done for EFW (2-9) and SHIV (6). Consulted with Dr. Jay. Pt sent to L&D for IVF x 24hrs, continuous monitoring, repeat SHIV & EFW in AM with BPP w/ Dopplers. EDC Calculations LMP: 05/29/2019 Past History : 3 Term Births: 0 Premature Births: 0 Living Children: 0 Para: 0 Mult. Births: 0 Prev : 0 Prev. attempt? 0 Aborta: 2 Elect. Ab: 0 Spont. 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 Infection History Hx of STD: none HIV Risk Eval: low risk Hepatitis B Risk Eval: low risk Personal hx. of genital herpes: no Rash, Viral, or Febrile illness since last LMP? no Varicella/Chicken Pox Status: Previous Disease TB Risk: no Genetic History Congenital Heart Defect: Mom: no Dad: no Julia Disease: Mom: no Dad: no Thalassemia Mom: no Dad: no Neural Tube Defect Mom: no Dad: no Down's Syndrome Mom: no Dad: no Renzo-Sachs Mom: no Dad: no Sickle Cell Disease/Trait Mom: no Dad: no Hemophilia Mom: no Dad: no Muscular Dystrophy Mom: no Dad: no Cystic Fibrosis Mom: no Dad: no Mccreary Chorea Mom: no Dad: no Mental Retardation Mom: no Dad: no Fragile X Mom: no Dad: no Other Genetic/Chromosomal Disorder Mom: no Dad: no Child w/other defect Mom: no Dad: no Enviromental Exposures Enviromental Exposures Reviewed Xray Exposure: no Medication, drug, or alcohol use since LMP: no Chemical/Other Exposure: yes Exposure to Cat Liter: no Hx of Parvovirus (Fifth Disease): no Occupational Exposure to Children: none Comments: works in a [employer] Active Medications (reviewed today): REGLAN TABS (METOCLOPRAMIDE HCL TABS) 10MG () 1 po TID ZOFRAN () Current Allergies (reviewed today): PCN (Critical) Patient reports: appetite normal, voiding normally, pain well controlled, ambulating normally, no dizzy ambulation, no flatus, no nauseated : in NICU Objective - Vital Signs Latest vital signs: Vital Signs Temp Pulse Resp BP BP Pulse Ox 04/22/19 02:03 98.7 F 53 L 20 117/72 99 04/21/19 21:04 61 133/94 04/21/19 21:00 98.9 F 54 L 16 120/75 04/21/19 20:05 61 122/72 04/21/19 19:04 57 L 125/73 04/21/19 15:38 98.2 F 77 18 121/61 121/65 Intake and Output 04/21/19 04/22/19 04/22/19 23:59 07:59 15:59 Intake Total 491.667 360 Output Total 500 Balance 491.667 -140 Intake: IV 491.667 Lactated Ringers 1,000 ml 491.667 @ 125 mls/hr IV DIRECT CHRISTIAN Rx#:[id number] Oral 360 Output: Urine 500 Indwelling Catheter 500 Other: Total, Intake Amount 240 Total, Output Amount 500 Estimated Blood Loss 500 - Exam Breasts: Present: normal Cardiovascular: Present: Regular rate Lungs: Present: Clear to auscultation, Normal air movement Abdomen: Present: normal appearance, soft. Absent: distention, tenderness Vulva: both: normal Uterus: Present: normal, firm, fundal height below umbilicus Extremities: Present: normal Deep Tendon Reflex Grade: Normal +2 Incision: Present: normal, dry, intact
[2019-04-22] MEDS ORDERED: FLU VACC QUAD 2019-20 (3 YR UP)/PF 60 MCG/0.5 ML SYRINGE IM ONE (12:00)
[2019-04-22 14:35] LABS: Hemoglobin 10.7 gm/dl (10.1-14.3)
[2019-04-22] MEDS ORDERED: IBUPROFEN 800 MG TAB PO PRN (23:28)
[2019-04-22] MEDS ORDERED: oxyCODONE /ACETAMINOPHEN 5-325MG TAB PO PRN (23:28)
[2019-04-23 03:34] VITALS: BP 110/57
[2019-04-23] MEDS ORDERED: LORazepam 2 MG/ML VIAL ONE (11:18)
--- NOTE | 2019-04-23 13:22 | Discharge Summary ---
Providers - Providers Date of Admission: 04/21/19 14:53 Date of discharge: 04/23/19 (desires d/c home) Attending physician: ANTONY GUAN 04/22/19 01:32 Consult to Production Officer [CONS] Routine Reason For Exam: Primary care physician: ANTONY GUAN Hospitalization Reason for admission: IUGR and oligiohydramnios Condition: Good Pertinent studies: postop H&H 10.7/32.0 Procedures: uncomplicated c/s Hospital course: uncomplicated c/s and postop course Disposition: - TO HOME OR SELFCARE - Discharge Diagnoses (1) delivery delivered Status: Acute Core Measure Documentation - Palliative Care Palliative Care/ Comfort Measures: Not Applicable - Core Measures Any of the following diagnoses?: none Exam - Constitutional Vitals: Temp Pulse Resp BP Pulse Ox 98.9 F 80 18 110/57 96 04/22/19 15:48 04/23/19 00:25 04/23/19 00:25 04/23/19 00:25 04/23/19 00:25 General appearance: Present: no acute distress, well-nourished - EENT Eyes: Present: PERRL ENT: hearing intact, clear oral mucosa - Neck Neck: Present: supple, normal ROM - Respiratory Respiratory effort: normal - Cardiovascular Rhythm: regular - Extremities Extremities: pulses symmetrical, No edema - Abdominal General gastrointestinal: Present: soft, non-tender, non-distended, normal bowel sounds Female genitourinary: Present: normal - Integumentary Integumentary: Present: clear, warm, dry - Musculoskeletal Musculoskeletal: gait normal, strength equal bilaterally - Psychiatric Psychiatric: appropriate mood/affect, intact judgment & insight - Neurologic Neurologic: CNII-XII intact, moves all extremities - Additional findings Additional findings: incision D&I, lochia scant, fundus firm Plan Activity: advance as tolerated Diet: regular Wound: open to air, keep clean and dry Follow up with: ANTONY GUAN MD [Primary Care Provider] - 7 Days (Congratulations! Please call [phone] to schedule your incision check in 1 week. Call for any questions or concerns.) Prescriptions: Lidocain2.5%/Prilocai2.5% [Emla] 5 gm TP ONCE #1 tube Ibuprofen [Motrin 800 MG tab] 800 mg PO TID PRN #30 tablet PRN Reason: Pain oxyCODONE /ACETAMINOPHEN [Percocet 5/325 mg] 1 tab PO Q6H PRN #20 tablet PRN Reason: Pain
== END 2019-04-23 15:45 | disposition home or self-care (01) | DRG 765 ==
LOC: TRG 14:46 → LD 14:48 → TRG 14:52 → APU 14:53 → LD 16:13 → OB 04-22 01:31
PROVIDERS: ADMIT Obstetrics & Gynecology; ATTEND Obstetrics & Gynecology
PROC: 10D00Z1 Extraction of Products of Conception, Low, Open Approach (ICD-10-PCS; principal; 2019-04-21)
DX: O36.5930 Maternal care for other known or suspected poor fetal growth, third trimester, not applicable or unspecified (principal); O41.03X0 Oligohydramnios, third trimester, not applicable or unspecified; Z3A.34 34 weeks gestation of pregnancy; Z37.0 Single live birth
CPT/HCPCS: 36415; 76805; 76819; 80307; 85014; 85018; 85027; 86592; 86850; 86900; 86901; 88307; 90686; G0378; J0690; J0702; J1580; J1885; J2060; J2270; J2405; J2590; J2765; J3490; J7120

== ENCOUNTER 2021-03-07 08:34 | Emergency (ER) | payer OTHER ==
[2021-03-07] MEDS ORDERED: SODIUM CHLORIDE 0.9% 1000 ML 1,000 ML IV ONE ×2 (09:04→10:28)
[2021-03-07] MEDS ORDERED: ONDANSETRON 4 MG/2 ML INJ IV ONE (09:04)
--- NOTE | 2021-03-07 09:07 | Emergency Department Report ---
HPI - General Chief Complaint: Nausea/Vomiting/Diarrhea Time Seen by Provider: 03/07/21 09:00 - HPI HPI: 25-year-old -[place] female presents to the emergency department with complaint of nausea with vomiting that has been going on for "days", as well as seeing some hematemesis this morning. The patient has a history of hyperemesis gravidarum with each of her pregnancies. She is currently about 12 weeks at G4, P1 with 2 previous miscarriages. The [place] [facility] [place] that [place] may need to switch practices due to her insurance. She denies any abdominal or pelvic pain, vaginal bleeding, dysuria, vaginal discharge, fever. She has not taken anything for symptoms prior to presentation. Patient has a history of seizures but her last seizure was in 2015 and previously was on Topamax. ED Past Medical Hx - Past Medical History Hx Hypertension: No Hx Congestive Heart Failure: No Hx Diabetes: No Hx Deep Vein Thrombosis: No Hx Renal Disease: No Hx Sickle Cell Disease: No Hx Seizures: Yes (last seizure 2015) Hx Asthma: No Hx COPD: No Hx HIV: No - Surgical History Additional Surgical History: c section 2019 - Social History Smoking Status: Never Smoker - Medications Home Medications: Home Medications Medication Instructions Recorded Confirmed Last Taken Type Ondansetron [Zofran Odt] 4 mg PO TID PRN #15 tab.rapdis 12/15/17 04/22/19 Unknown Rx traMADoL [Ultram] 50 mg PO Q6HR PRN #9 tablet 12/15/17 04/22/19 Unknown Rx Metoclopramide [Reglan] 10 mg PO TID PRN #30 tab 06/06/18 04/22/19 Unknown Rx Ibuprofen [Motrin 800 MG tab] 800 mg PO TID PRN #30 tablet 04/21/19 Unknown Rx Lidocain2.5%/Prilocai2.5% [Emla] 5 gm TP ONCE #1 tube 04/21/19 Unknown Rx oxyCODONE /ACETAMINOPHEN [Percocet 1 tab PO Q6H PRN #20 tablet 04/21/19 Unknown Rx 5/325 mg] Doxylamine Succinate/Vit B6 2 each PO BID PRN #30 tablet. 03/07/21 Unknown Rx [Julee Frank 10-10 mg Tablet] Nitrofurantoin Darke/M-Cryst 100 mg PO Q12HR #14 capsule 03/07/21 Unknown Rx [Macrobid CAP] ED Review of Systems ROS: Stated complaint: VOMITTING BLOOD Other details as noted in HPI Comment: All other systems reviewed and negative Constitutional: denies: chills, fever Eyes: denies: eye pain, vision change ENT: denies: ear pain, throat pain Respiratory: denies: cough, shortness of breath Cardiovascular: denies: chest pain, palpitations Gastrointestinal: nausea, vomiting. denies: abdominal pain Genitourinary: denies: dysuria, discharge Musculoskeletal: denies: back pain, arthralgia Skin: denies: rash, lesions Neurological: denies: headache, weakness Physical Exam - Physical Exam Physical Exam: GENERAL: The patient is well-developed well-nourished. HENT: Normocephalic. Atraumatic. Patient has moist mucous membranes. EYES: Extraocular motions are intact. NECK: Supple. Trachea is midline. CHEST/LUNGS: Clear to auscultation. There is no respiratory distress noted. HEART/CARDIOVASCULAR: Regular. There is mild to moderate tachycardia. There is no murmur. ABDOMEN: Abdomen is soft, nontender. Patient has normal bowel sounds. There is no abdominal distention. SKIN: Skin is warm and dry. NEURO: The patient is awake, alert, and oriented. The patient is cooperative. Normal speech. MUSCULOSKELETAL: There is no tenderness or deformity. There is no limitation range of motion. ED Medical Decision Making - Lab Data Result diagrams: 03/07/21 09:16 03/07/21 09:16 Lab Results 03/07/21 03/07/21 03/07/21 Range/Units 09:16 09:16 09:16 WBC 16.9 H (4.5-11.0) K/mm3 RBC 5.13 H (3.65-5.03) M/mm3 Hgb 14.0 (10.1-14.3) gm/dl Hct 42.1 (30.3-42.9) % MCV 82 (79-97) fl MCH 27 L (28-32) pg MCHC 33 (30-34) % RDW 14.9 (13.2-15.2) % Plt Count 329 (140-440) K/mm3 Lymph % (Auto) 7.9 L (13.4-35.0) % Darke % (Auto) 5.4 (0.0-7.3) % Eos % (Auto) 0.1 (0.0-4.3) % Baso % (Auto) 0.1 (0.0-1.8) % Lymph # (Auto) 1.3 (1.2-5.4) K/mm3 Darke # (Auto) 0.9 H (0.0-0.8) K/mm3 Eos # (Auto) 0.0 (0.0-0.4) K/mm3 Baso # (Auto) 0.0 (0.0-0.1) K/mm3 Seg Neutrophils % 86.5 H (40.0-70.0) % Seg Neutrophils # 14.7 H (1.8-7.7) K/mm3 Sodium 138 (137-145) mmol/L Potassium 3.2 L (3.6-5.0) mmol/L Chloride 96.0 L (98-107) mmol/L Carbon Dioxide 13 L (22-30) mmol/L Anion Gap 32 mmol/L BUN 11 (7-17) mg/dL Creatinine 0.8 (0.6-1.2) mg/dL Estimated GFR > 60 ml/min BUN/Creatinine Ratio 14 % Glucose 113 H (65-100) mg/dL Calcium 10.6 H (8.4-10.2) mg/dL Total Bilirubin 0.30 (0.1-1.2) mg/dL AST 25 (5-40) units/L ALT 20 (7-56) units/L Alkaline Phosphatase 77 (35-129) units/L Total Protein 9.1 H (6.3-8.2) g/dL Albumin 5.0 (3.9-5) g/dL Albumin/Globulin Ratio 1.2 % Lipase 43 (13-60) units/L HCG, Quant 128221 H (0-4) mIU/mL Urine Color (Yellow) Urine Turbidity (Clear) Urine pH (5.0-7.0) Ur Specific [place] (1.003-1.030) Urine Protein (Negative) mg/dL Urine Glucose (UA) (Negative) mg/dL Urine Ketones (Negative) mg/dL Urine Blood (Negative) Urine Nitrite (Negative) Urine Bilirubin (Negative) Urine Urobilinogen (<2.0) mg/dL Ur Leukocyte Esterase (Negative) Urine WBC (Auto) (0.0-6.0) /HPF Urine RBC (Auto) (0.0-6.0) /HPF U Epithel Cells (Auto) (0-13.0) /HPF Urine Bacteria (Auto) (Negative) /HPF Hyaline Casts /LPF Urine Mucus /HPF 03/07/21 Range/Units Unknown WBC (4.5-11.0) K/mm3 RBC (3.65-5.03) M/mm3 Hgb (10.1-14.3) gm/dl Hct (30.3-42.9) % MCV (79-97) fl MCH (28-32) pg MCHC (30-34) % RDW (13.2-15.2) % Plt Count (140-440) K/mm3 Lymph % (Auto) (13.4-35.0) % Darke % (Auto) (0.0-7.3) % Eos % (Auto) (0.0-4.3) % Baso % (Auto) (0.0-1.8) % Lymph # (Auto) (1.2-5.4) K/mm3 Darke # (Auto) (0.0-0.8) K/mm3 Eos # (Auto) (0.0-0.4) K/mm3 Baso # (Auto) (0.0-0.1) K/mm3 Seg Neutrophils % (40.0-70.0) % Seg Neutrophils # (1.8-7.7) K/mm3 Sodium (137-145) mmol/L Potassium (3.6-5.0) mmol/L Chloride (98-107) mmol/L Carbon Dioxide (22-30) mmol/L Anion Gap mmol/L BUN (7-17) mg/dL Creatinine (0.6-1.2) mg/dL Estimated GFR ml/min BUN/Creatinine Ratio % Glucose (65-100) mg/dL Calcium (8.4-10.2) mg/dL Total Bilirubin (0.1-1.2) mg/dL AST (5-40) units/L ALT (7-56) units/L Alkaline Phosphatase (35-129) units/L Total Protein (6.3-8.2) g/dL Albumin (3.9-5) g/dL Albumin/Globulin Ratio % Lipase (13-60) units/L HCG, Quant (0-4) mIU/mL Urine Color Yellow (Yellow) Urine Turbidity Cloudy (Clear) Urine pH 5.0 (5.0-7.0) Ur Specific [place] 1.020 (1.003-1.030) Urine Protein 100 mg/dl (Negative) mg/dL Urine Glucose (UA) Neg (Negative) mg/dL Urine Ketones 80 (Negative) mg/dL Urine Blood Neg (Negative) Urine Nitrite Neg (Negative) Urine Bilirubin Neg (Negative) Urine Urobilinogen < 2.0 (<2.0) mg/dL Ur Leukocyte Esterase Mod (Negative) Urine WBC (Auto) 58.0 H (0.0-6.0) /HPF Urine RBC (Auto) 7.0 (0.0-6.0) /HPF U Epithel Cells (Auto) 46.0 H (0-13.0) /HPF Urine Bacteria (Auto) 1+ (Negative) /HPF Hyaline Casts 1 /LPF Urine Mucus Few /HPF - Medical Decision Making This patient presents to the emergency department with nausea with vomiting consistent with hyperemesis gravidarum. She denies any abdominal or pelvic pain, vaginal bleeding or discharge. An IV was placed and the patient was given 2 L of IV fluid resuscitation and a dose of IV Zofran. Patient's labs show a leukocytosis of about 16,000 that I believe is most likely reactive to the patient's copious vomiting. She has hypokalemia with a potassium level of 3.2, some decreased bicarb consistent with her dehydration, and urinalysis shows a urinary tract infection. The patient was reevaluated multiple times over multiple hours and is feeling greatly improved. Her IV infiltrated towards the second potassium chloride rider, but at this point the patient was able to pass an oral challenge and it was changed over to oral potassium replacement. As the patient did not have any abdominal/pelvic pain, vaginal bleeding, I did not feel that the patient needed a ultrasound. However, I did a bedside ultrasound and see a live intrauterine with a heart rate of 160 bpm. Patient has good outpatient follow-up with [facility] REPAIR[facility]. She has been given a prescription for an antiemetic and instructed to increase oral rehydration. Patient understands and agrees to the plan. Critical Care Time: No Critical care attestation.: If time is entered above; I have spent that time in minutes in the direct care of this critically ill patient, excluding procedure time. ED Disposition Clinical Impression: Hyperemesis gravidarum Disposition: 01 HOME / SELF CARE / HOMELESS Is pt being admited?: No Condition: Stable Instructions: Hyperemesis Gravidarum Additional Instructions: Please follow-up with your CELL[facility] PHONE REPAIRER in the next few days. Increase your oral rehydration. Please take the medications as prescribed. Return to the emergency department with any worsening of your symptoms, new or concerning symptoms not addressed during this current emergency department visit, or with any acute distress. Prescriptions: Doxylamine Succinate/Vit B6 [Julee Frank 10-10 mg Tablet] 2 each PO BID PRN #30 tablet. PRN Reason: Nausea Nitrofurantoin Darke/M-Cryst [Macrobid CAP] 100 mg PO Q12HR #14 capsule Referrals: OBGYN, Your [Other] - 2-3 Days Time of Disposition: 13:34
[2021-03-07] MEDS ORDERED: FAMOTIDINE 20 MG/2 ML INJ IV ONE (09:09)
[2021-03-07 09:28] LABS: Basophils % (Auto) 0.1 % (0.0-1.8); Eosinophils % (Auto) 0.1 % (0.0-4.3); Hematocrit 42.1 % (30.3-42.9); Lymphocytes # (Auto) 1.3 K/mm3 (1.2-5.4); Lymphocytes % (Auto) 7.9 % (13.4-35.0); Mean Corpuscular HGB Conc 33 % (30-34); Mean Corpuscular Volume 82 fl (79-97); Monocytes # (Auto) 0.9 K/mm3 (0.0-0.8); Monocytes % (Auto) 5.4 % (0.0-7.3); Platelet Count 329 K/mm3 (140-440); Red Blood Count 5.13 M/mm3 (3.65-5.03); Red Cell Distribution Width 14.9 % (13.2-15.2)
[2021-03-07 09:37] VITALS: BP 130/81
[2021-03-07 10:12] LABS: BUN/Creatinine Ratio 14; Blood Urea Nitrogen 11 mg/dL (7-17); Calcium 10.6 mg/dL (8.4-10.2)
[2021-03-07 10:13] LABS: Alanine Aminotransferase 20 units/L (7-56)
[2021-03-07] MEDS ORDERED: POTASSIUM CHLORIDE 10 MEQ 10 MEQ/100 ML BAG IV SCH (11:00)
[2021-03-07 11:24] LABS: Bacteria,Urine 1+ /HPF (Negative); Bilirubin,Urine NEG (Negative); Blood,Urine NEG (Negative); Color,Urine Yellow (Yellow); Hyaline Casts,Urine 1 /LPF; Mucus,Urine FEW /HPF; Urobilinogen,Urine < 2.0 mg/dL (<2.0)
[2021-03-07] MEDS ORDERED: POTASSIUM CHLORIDE ER 20 MEQ TAB PO ONE (13:31)
== END 2021-03-07 13:45 | disposition home or self-care (01) ==
LOC: ED 08:34
DX: O21.0 Mild hyperemesis gravidarum (principal); O26.891 Other specified pregnancy related conditions, first trimester; E87.6 Hypokalemia; Z79.899 Other long term (current) drug therapy; Z98.890 Other specified postprocedural states; Z88.0 Allergy status to penicillin; Z3A.12 12 weeks gestation of pregnancy
CPT/HCPCS: 36415; 80053; 81001; 83690; 84702; 85025; 87086; 96361; 96365; 96375; 99284; J2405; J3480; J7030

== ENCOUNTER 2021-03-15 03:37 | Emergency (ER) | payer OTHER ==
[2021-03-15] MEDS ORDERED: SODIUM CHLORIDE 0.9% 1000 ML 1,000 ML IV ONE (04:32)
[2021-03-15] MEDS ORDERED: PROCHLORPERAZINE EDISYLATE 10 MG/2 ML VIAL IV ONE (04:32)
[2021-03-15] MEDS ORDERED: FAMOTIDINE 20 MG/2 ML INJ IV ONE (04:32)
--- NOTE | 2021-03-15 04:35 | Emergency Department Report ---
<CAMMIE RODRIGUEZ - Last Filed: 03/15/21 06:55> ED N/V/D HPI - General Chief complaint: Nausea/Vomiting/Diarrhea Stated complaint: VOMITING/HEADACHE/CRAMPING/POSSIBLE SEIZURE Source: patient Mode of arrival: Ambulatory Limitations: No Limitations - History of Present Illness Initial comments: Patient is a A0 25-year-old -[place] female who is approximately 13 weeks gestation who presents to the ED with complaint of intractable nausea and vomiting for the last 3 weeks, worse in the last 5 days. Patient states that she has not been able to keep anything down for the last 5 days not even water because of intractable nausea and vomiting. Patient states that she was initially prescribed antiemetic Diclegis but this has not been able to help. Patient states that she has an appointment with her [employer] physician on Wednesday, March 17, 2021 for evaluation but could not wait at home because of intercurrent nausea and vomiting that prevented her from eating. Patient denies abdominal pain, vaginal bleeding, vaginal discharge, dysuria, urinary frequency and urgency, chest pain, shortness of breath, lightheadedness, dizziness, syncope, diarrhea, sore throat or headache. MD complaint: nausea, vomiting, other (13 weeks gestation) -: Sudden, week(s) (2) Description of Vomiting: food contents, watery, bilious Associated Abdominal Pain: Yes (Mildly diffuse) Location: diffuse Radiation: none Severity: moderate Pain Scale: 2 Quality: cramping, dull Consistency: intermittent Improves with: none Worsens with: vomiting Context: other (13 weeks gestation) Associated Symptoms: denies other symptoms, loss of appetite, malaise, nausea/vomiting. denies: myalgias, chest pain, cough, diaphoresis, fever/chills, headaches, rash, dysuria, shortness of breath, syncope, weakness - Related Data Previous Rx's Medication Instructions Recorded Last Taken Type Ondansetron [Zofran Odt] 4 mg PO TID PRN #15 tab.rapdis 12/15/17 Unknown Rx traMADoL [Ultram] 50 mg PO Q6HR PRN #9 tablet 12/15/17 Unknown Rx Metoclopramide [Reglan] 10 mg PO TID PRN #30 tab 06/06/18 Unknown Rx Ibuprofen [Motrin 800 MG tab] 800 mg PO TID PRN #30 tablet 04/21/19 Unknown Rx Lidocain2.5%/Prilocai2.5% [Emla] 5 gm TP ONCE #1 tube 04/21/19 Unknown Rx oxyCODONE /ACETAMINOPHEN [Percocet 1 tab PO Q6H PRN #20 tablet 04/21/19 Unknown Rx 5/325 mg] Doxylamine Succinate/Vit B6 2 each PO BID PRN #30 tablet.dr 03/07/21 Unknown Rx [Diclegis Dr 10-10 mg Tablet] Nitrofurantoin [place]/M-Cryst 100 mg PO Q12HR #14 capsule 03/07/21 Unknown Rx [Macrobid CAP] Ondansetron [Zofran Odt] 4 mg PO Q8HR PRN #10 tab.rapdis 03/15/21 Unknown Rx Potassium Chloride [Klor-Con M20] 20 meq PO Q12H #20 tab.er.prt 03/15/21 Unknown Rx Promethazine HCl [Phenergan SUPPOS] 25 mg RC Q6H PRN #20 supp.rect 03/15/21 Unknown Rx Allergies Allergy/AdvReac Type Severity Reaction Status Date / Time Penicillins Allergy Unknown Verified 12/14/17 19:31 ED Review of Systems Constitutional: denies: chills, fever Eyes: denies: eye pain, eye discharge, vision change ENT: denies: ear pain, throat pain Respiratory: denies: cough, shortness of breath, wheezing Cardiovascular: denies: chest pain, palpitations Endocrine: no symptoms reported Gastrointestinal: nausea, vomiting. denies: abdominal pain, diarrhea Genitourinary: denies: urgency, dysuria, discharge Musculoskeletal: denies: back pain, joint swelling, arthralgia Skin: denies: rash, lesions Neurological: denies: headache, weakness, paresthesias Psychiatric: denies: anxiety, depression Hematological/Lymphatic: denies: easy bleeding, easy bruising ED Past Medical Hx - Past Medical History Previous Medical History?: Yes Hx Hypertension: No Hx Congestive Heart Failure: No Hx Diabetes: No Hx Deep Vein Thrombosis: No Hx Renal Disease: No Hx Sickle Cell Disease: No Hx Seizures: Yes (last seizure 2015) Hx Asthma: No Hx COPD: No Hx HIV: No - Surgical History Past Surgical History?: Yes Additional Surgical History: c section 2019 - Social History Smoking Status: Never Smoker - Medications Home Medications: Home Medications Medication Instructions Recorded Confirmed Last Taken Type Ondansetron [Zofran Odt] 4 mg PO TID PRN #15 tab.rapdis 12/15/17 04/22/19 Unknown Rx traMADoL [Ultram] 50 mg PO Q6HR PRN #9 tablet 12/15/17 04/22/19 Unknown Rx Metoclopramide [Reglan] 10 mg PO TID PRN #30 tab 06/06/18 04/22/19 Unknown Rx Ibuprofen [Motrin 800 MG tab] 800 mg PO TID PRN #30 tablet 04/21/19 Unknown Rx Lidocain2.5%/Prilocai2.5% [Emla] 5 gm TP ONCE #1 tube 04/21/19 Unknown Rx oxyCODONE /ACETAMINOPHEN [Percocet 1 tab PO Q6H PRN #20 tablet 04/21/19 Unknown Rx 5/325 mg] Doxylamine Succinate/Vit B6 2 each PO BID PRN #30 tablet.dr 03/07/21 Unknown Rx [Dicantoine Dr 10-10 mg Tablet] Nitrofurantoin [place]/M-Cryst 100 mg PO Q12HR #14 capsule 03/07/21 Unknown Rx [Macrobid CAP] Ondansetron [Zofran Odt] 4 mg PO Q8HR PRN #10 tab.rapdis 03/15/21 Unknown Rx Potassium Chloride [Klor-Con M20] 20 meq PO Q12H #20 tab.er.prt 03/15/21 Unknown Rx Promethazine HCl [Phenergan SUPPOS] 25 mg RC Q6H PRN #20 supp.rect 03/15/21 Unknown Rx ED Physical Exam - General Limitations: No Limitations General appearance: alert, in no apparent distress - Head Head exam: Present: atraumatic, normocephalic, normal inspection - Eye Eye exam: Present: normal appearance, PERRL, EOMI Pupils: Present: normal accommodation - ENT ENT exam: Present: normal exam, normal orophraynx, mucous membranes moist, TM's normal bilaterally, normal external ear exam - Neck Neck exam: Present: normal inspection, full ROM - Respiratory Respiratory exam: Present: normal lung sounds bilaterally. Absent: respiratory distress, wheezes, rales, rhonchi, chest wall tenderness, accessory muscle use, decreased breath sounds, prolonged expiratory - Cardiovascular Cardiovascular Exam: Present: normal rhythm, tachycardia, normal heart sounds. Absent: systolic murmur, diastolic murmur, rubs, gallop - GI/Abdominal GI/Abdominal exam: Present: soft, normal bowel sounds. Absent: tenderness, guarding, rebound, hyperactive bowel sounds, hypoactive bowel sounds, organomegaly, mass, bruit - Extremities Exam Extremities exam: Present: normal inspection, full ROM, normal capillary refill - Back Exam Back exam: Present: normal inspection, full ROM. Absent: tenderness, CVA tenderness (R), CVA tenderness (L), muscle spasm, paraspinal tenderness, vertebral tenderness - Neurological Exam Neurological exam: Present: alert, oriented X3, CN II-XII intact, normal gait, reflexes normal - Psychiatric Psychiatric exam: Present: normal affect, normal mood - Skin Skin exam: Present: warm, dry, intact, normal color. Absent: rash ED Medical Decision Making - Lab Data Result diagrams: 03/15/21 04:44 03/15/21 04:44 - Medical Decision Making This is a A0 25-year-old -[place] female who is approximately 13 weeks gestation who presents to the ED with complaint of intractable nausea and vomiting for the last 3 weeks, worse in the last 5 days. Patient states that she has not been able to keep anything down for the last 5 days not even water because of intractable nausea and vomiting. Patient states that she was initially prescribed antiemetic Diclegis but this has not been able to help. Patient states that she has an appointment with her [employer] physician on Wednesday, March 17, 2021 for evaluation but could not wait at home because of intercurrent nausea and vomiting that prevented her from eating. In the ED, patient is alert and oriented x3 and is not in any distress. Patient is however tachycardic and afebrile in triage. Patient was treated in the ED with antiemetics, antacids and also given normal saline 1 L IV bolus x1. Additionally the patient also received another 1 L normal saline IV bolus. On reevaluation, patient nausea and vomiting resolved, patient was able to keep oral fluids including ice chips with no difficulty. Lab test results were reviewed and showed acute hypokalemia of 2.5 mmol/L and leukocytosis of 12,400. Patient was treated in the ED additionally with potassium chloride 60 mEq x 1 since she was able to keep oral fluids and oral medications. Patient care was transferred to Ms. Zhang MARIE at shift change. She shall review the pat ient lab test results, and showed the patient urinalysis is unremarkable and disposition the patient accordingly. - Differential Diagnosis Dehydration; hyperemesis; GERD; hypokalemia; UTI; ED Disposition Clinical Impression: Severe hyperemesis gravidarum, Acute hypokalemia Disposition: 01 HOME / SELF CARE / HOMELESS Is pt being admited?: No Does the pt Need Aspirin: No Condition: Stable Instructions: Hyperemesis Gravidarum, Nausea and Vomiting, Adult, [id number], Morning Sickness, [id number] Prescriptions: Potassium Chloride [Klor-Con M20] 20 meq PO Q12H #20 tab.er.prt Promethazine HCl [Phenergan SUPPOS] 25 mg RC Q6H PRN #20 supp.rect PRN Reason: Nausea Ondansetron [Zofran Odt] 4 mg PO Q8HR PRN #10 tab.rapdis PRN Reason: Nausea Time of Disposition: 04:35 Print Language: VIETNAMESE <ZENY NGO - Last Filed: 03/15/21 11:43> ED Review of Systems ROS: Stated complaint: VOMITING/HEADACHE/CRAMPING/POSSIBLE SEIZURE Other details as noted in HPI ED Course Vital Signs 03/15/21 03/15/21 03/15/21 04:05 10:56 11:01 Temperature 98.3 F Pulse Rate 130 H 121 H 114 H Respiratory 18 14 12 Rate Blood Pressure 143/89 103/55 O2 Sat by Pulse 99 100 99 Oximetry 03/15/21 03/15/21 11:15 11:17 Temperature Pulse Rate 115 H Respiratory 19 Rate Blood Pressure 103/55 O2 Sat by Pulse 100 100 Oximetry ED Medical Decision Making - Lab Data Result diagrams: 03/15/21 04:44 03/15/21 10:19 - Medical Decision Making I evaluated patient. I consulted my colleague regarding plan of care. I spoke with patient. She explained that she will obtain services from a new supervisor wet room due to healthcare insurance limitation. She stated that she "feels way better". She has had tachycardia with her previous . She has been able to tolerate p.o. in emergency department. I have prescribed potassium Zofran and promethazine suppositories. Discharged home. Critical care attestation.: If time is entered above; I have spent that time in minutes in the direct care of this critically ill patient, excluding procedure time. ED Disposition Is pt being admited?: No Does the pt Need Aspirin: No Time of Disposition: 11:42
[2021-03-15 05:15] LABS: Basophils # (Auto) 0.1 K/mm3 (0.0-0.1); Basophils % (Auto) 0.4 % (0.0-1.8); Eosinophils % (Auto) 0.1 % (0.0-4.3); Hematocrit 37.6 % (30.3-42.9); Hemoglobin 12.9 gm/dl (10.1-14.3); Lymphocytes # (Auto) 1.3 K/mm3 (1.2-5.4); Lymphocytes % (Auto) 10.7 % (13.4-35.0); Mean Corpuscular HGB Conc 34 % (30-34); Mean Corpuscular Volume 82 fl (79-97); Monocytes # (Auto) 0.7 K/mm3 (0.0-0.8); Monocytes % (Auto) 5.8 % (0.0-7.3); Platelet Count 306 K/mm3 (140-440); Red Blood Count 4.59 M/mm3 (3.65-5.03); Red Cell Distribution Width 14.5 % (13.2-15.2)
[2021-03-15 05:19] LABS: Alanine Aminotransferase 45 units/L (7-56); Albumin 4.5 g/dL (3.9-5); Blood Urea Nitrogen 10 mg/dL (7-17); Calcium 10.1 mg/dL (8.4-10.2); Hemolysis Index 7
[2021-03-15 05:20] LABS: BUN/Creatinine Ratio 17
[2021-03-15] MEDS ORDERED: NACL 0.9%/KCL 40 MEQ 40 MEQ/1,000 ML BAG IV SCH (06:00)
[2021-03-15] MEDS ORDERED: POTASSIUM CHLORIDE ER 20 MEQ TAB PO ONE ×2 (06:27→08:42)
[2021-03-15] MEDS ORDERED: METOCLOPRAMIDE 10 MG/2 ML INJ IV ONE (07:01)
[2021-03-15] MEDS ORDERED: diphenhydrAMINE 50 MG/ML VIAL IV ONE (07:01)
[2021-03-15] MEDS ORDERED: LACTATED RINGERS 1,000 ML IV ONE (07:01)
[2021-03-15] MEDS: POTASSIUM CHLORIDE ER 20 MEQ TAB PO ONE (07:25)
[2021-03-15 07:48] LABS: Blood Urea Nitrogen 9 mg/dL (7-17); Hemolysis Index 2
[2021-03-15 07:54] LABS: BUN/Creatinine Ratio 18
[2021-03-15 11:17] VITALS: BP 103/55
== END 2021-03-15 12:03 | disposition home or self-care (01) ==
LOC: ED 03:37
DX: O21.1 Hyperemesis gravidarum with metabolic disturbance (principal); O26.891 Other specified pregnancy related conditions, first trimester; Z98.890 Other specified postprocedural states; Z88.0 Allergy status to penicillin; Z3A.13 13 weeks gestation of pregnancy
CPT/HCPCS: 36415; 80048; 80053; 83690; 84132; 84703; 85025; 96361; 96374; 99283; J0780; J1200; J2765; J7030; J7120